=== PATIENT | female | born 1955 | race Caucasian/White ===

== ENCOUNTER 2016-07-12 07:21 | Day surgery (SDC) | payer MEDICARE, OTHER ==
--- NOTE | ~2016-07-12 | OP ---
Record Of Operation [facility] [address] [place]. [address] NAME: OLINDA MCCRACKEN : 57 STATUS : [facility]#: [id number] AGE: 60 ADM/REG DATE : 07/12/16 MR#: [id number] REPORT SERV DATE: 07/12/16 DICTATED BY: EDGAR CASTANON DATE: 07/12/16 REPORT STATUS : Draft TRANSCRIBED BY: NOY DATE: 07/12/16 DATE OF PROCEDURE: 07/12/2016 PREOPERATIVE DIAGNOSES: 1. Right breast HER2 positive breast cancer. 2. Left breast invasive ductal cancer, HER2 negative. 3. History of gastric lymphoma. POSTOPERATIVE DIAGNOSES: 1. Right breast HER2 positive breast cancer. 2. Left breast invasive ductal cancer, HER2 negative. 3. History of gastric lymphoma. PROCEDURE: 1. Insertion of left chest wall venous port internal jugular access. 2. Intraoperative fluoroscopy with interpretation. 3. Intraoperative ultrasound for vein access. 4. Placement of a right percutaneous HydroMARK clip for tumor bed evaluation post chemotherapy, this is under ultrasound guidance. INDICATION FOR THE PROCEDURE: Ms Mccracken is a 60-year-old patient with unfortunately a bilateral breast cancer diagnosis. The right breast cancer is HER2 positive and does warrant neoadjuvant chemotherapy. A HydroMARK clip will be placed in the right breast tumor today under ultrasound guidance. Additionally, she has been diagnosed with a left breast, grade 1, ER/[place] positive invasive ductal cancer as well. The clip was placed in that lesion at biopsy in my office. The plan today is for port placement on the left side internal jugular access and additionally the placement of the clip. OPERATIVE FINDINGS: After appropriate consent was on the chart, the patient was taken to the operating room in supine position. She was placed under monitored anesthesia without complication. The ultrasound was utilized to visualize the tumor in the right breast marked on the skin. The ultrasound was placed in the left neck showing the internal jugular vein in its normal anatomic position and patent. The patient's bilateral chest wall were prepped and draped in sterile fashion. The draped ultrasound probe was utilized to visualize the left internal jugular vein. Again, the local anesthetic was infiltrated in the skin and soft tissue overlying the vein. The vein was then accessed with a single pass of the Seldinger needle under direct ultrasound guidance. Nonpulsatile venous-appearing blood was noted in the syringe. The syringe was removed and the wire passed with ease. Fluoroscopy noted the wire to be in good position in the vena cava. The needle was removed and the wire secured for later use. The local anesthetic was infiltrated in the skin and soft tissue for the port site as well as the tunnel site. An incision was made with a #15 blade, and the port pocket created with Bovie cauterization. Stay sutures were placed at the 3 o'clock and 9 o'clock position with 3-0 Prolene. An 11 blade was utilized to lengthen the access site in the neck and the tunneling device utilized to create the new subcutaneous tunnel from the port to the access site as well as pull the catheter through. At this point, the dilator with tear-away sheath was placed over the wire. With constant movement of the wire, the Record Of Operation [facility] [address] [place]. [address] NAME: OLINDA MCCRACKEN : 57 STATUS : [facility]#: [id number] AGE: 60 ADM/REG DATE : 07/12/16 MR#: [id number] REPORT SERV DATE: 07/12/16 DICTATED BY: EDGAR CASTANON DATE: 07/12/16 REPORT STATUS : Draft TRANSCRIBED BY: MODL DATE: 07/12/16 vein was dilated. The dilator and wire were removed from the sheath leaving the sheath in the vein. The catheter was placed into the sheath and sheath torn away, and the catheter was noted to be in good position at atriocaval junction with fluoroscopy. The catheter was cut for length at the port site and connects to the port with the connection device. Grady needle with heparinized saline was utilized to note that the port aspirated and flushed with ease. It was packed with heparinized saline. The wound was copiously irrigated with warm saline. Hemostasis achieved. The incision closed in two layers of Monocryl. A small suture of Monocryl was utilized to reapproximate the bekah in the neck. Both incisions were cleansed and dried and Dermabond overlaid. The ultrasound was utilized to visualize the tumor in the right breast. Local anesthetic was infiltrated into the skin and soft tissue and the percutaneous placement of the clip was performed under ultrasound guidance. The skin was cleansed and a Band-Aid applied. The patient tolerated the procedure well. She was awoken from anesthesia without complication and taken to the PACU in stable condition for recovery. All counts were correct at the end of the case. ESTIMATED BLOOD LOSS: 10 mL. COMPLICATIONS: None. SPECIMENS: None. CHIN/NOY Edgar Castanon MD / [id number] CC: MD Jose L Smith M.D. [facility] Rodger Latham IV, M.D.
[~2016-07-12 07:21] MED LIST: ACIPHEX PO; ADVIL PO; ALEVE220 MG PO; ALLEGRA180 PO; CALTRAT600 PO; CLARIT10 PO; FLEX PO; PLAQ200B PO; POTASSIUM PO; PROBIOTIC PO; SINGULAIR1 PO; STERAP512 PO; SUPER B COMPLEX PO; T PO; TUMERIC; ULTRAM50 PO; VENTOLIN HFA INH; VITAMIN D31000 UNIT PO; VOLT75 PO; [UNRECOGNIZED DRUG - REMARK]
[2016-07-12 08:00] LABS: BASOPHILS 0.5 %; BASOPHILS ABSOLUTE 0.04 10/3/uL (0.0-0.16); EOSINOPHILS ABSOLUTE 0.38 10/3/uL (0.0-0.53); HEMATOCRIT 44.5 % (36.0-48.0); HEMOGLOBIN 14.8 g/dL (12.0-16.0); IMMATURE GRANULOCYTES 0.3 %; IMMATURE GRANULOCYTES ABSOLUTE 0.02 10/3/uL (0.0-0.11); LYMPHOCYTES 22.6 %; LYMPHOCYTES ABSOLUTE 1.73 10/3/uL (0.67-4.30); MEAN CORPUS HGB CONC 33.3 g/dL (32.0-36.0); MEAN CORPUSCULAR HEMOGLOB 30.3 pg (26.0-34.0); MEAN CORPUSCULAR VOLUME 91.2 fL (80-100); MEAN PLATELET VOLUME 10.4 fL (9.2-13.0); MONOCYTES 13.4 %; MONOCYTES ABSOLUTE 1.03 10/3/uL (0.21-1.20); NEUTROPHILS 58.2 %; NEUTROPHILS ABSOLUTE 4.46 10/3/uL (2.02-8.40); PLATELET COUNT 354 10/3/uL (150-400); RBC DISTRIBUTION WIDTH 12.8 % (12.0-16.0); RED CELL COUNT 4.88 10/6/uL (4.0-5.6); WHITE BLOOD CELLS 7.7 10/3/uL (4.5-10.5)
[2016-07-12 08:01] LABS: MANUAL DIFF NO %
[2016-07-12 08:15] LABS: A/G RATIO 0.7 (0.7-1.9); ALBUMIN 3.1 G/DL (3.5-5.0); ALKALINE PHOSPHATASE 94 U/L (45-117); BUN (BLOOD UREA NITROGEN) 12 MG/DL (6-23); CALCIUM, SERUM 9.5 MG/DL (8.5-10.4); CHLORIDE, SERUM 106 MMOL/L (96-112); CO2 (CARBON DIOXIDE) 30 MMOL/L (24-34); CREATININE 0.74 MG/DL (0.55-1.02); GFR AFRICAN AMERICAN 103 ML/MIN (>=60); GFR NON AFRICAN AMERICAN 89 ML/MIN (>=60); GLUCOSE, SERUM 106 MG/DL (60-99); POTASSIUM, SERUM 4.3 MMOL/L (3.5-5.3); SGOT(AST) 22 U/L (5-40); SGPT(ALT) 30 U/L (5-65); SODIUM, SERUM 143 MMOL/L (135-148); TOTAL BILIRUBIN 0.3 MG/DL (0-1.2); TOTAL PROTEIN 7.7 G/DL (6.0-8.5)
[2016-07-12 08:16] LABS: GLOBULIN 4.6 G/DL (2.5-4.1)
[2016-11-29] MEDS ORDERED: MICRO-K10 MEQ PO (11:24)
== END 2016-07-12 11:38 | disposition home or self-care (01) ==
LOC: SDC 07:21
PROVIDERS: Surgery Surgical Oncology
PROC: 05HN33Z Insertion of Infusion Device into Left Internal Jugular Vein, Percutaneous Approach (ICD-10-PCS; 2016-07-12)
PROC: B514ZZA Fluoroscopy of Left Jugular Veins, Guidance (ICD-10-PCS; 2016-07-12)
PROC: B544ZZA Ultrasonography of Left Jugular Veins, Guidance (ICD-10-PCS; 2016-07-12)
PROC: BH40ZZZ Ultrasonography of Right Breast (ICD-10-PCS; 2016-07-12)
PROC: 0JH60XZ Insertion of Tunneled Vascular Access Device into Chest Subcutaneous Tissue and Fascia, Open Approach (ICD-10-PCS; principal; 2016-07-12 08:45)
DX: C50.912 Malignant neoplasm of unspecified site of left female breast (principal); C50.911 Malignant neoplasm of unspecified site of right female breast; Z17.0 Estrogen receptor positive status [ER+]; Z85.72 Personal history of non-Hodgkin lymphomas; J45.909 Unspecified asthma, uncomplicated; M06.9 Rheumatoid arthritis, unspecified; K21.9 Gastro-esophageal reflux disease without esophagitis; K59.00 Constipation, unspecified; Z86.69 Personal history of other diseases of the nervous system and sense organs; Z79.1 Long term (current) use of non-steroidal anti-inflammatories (NSAID); Z79.899 Other long term (current) drug therapy; Z87.891 Personal history of nicotine dependence; Z90.49 Acquired absence of other specified parts of digestive tract; Z98.890 Other specified postprocedural states; Z87.442 Personal history of urinary calculi; Z98.1 Arthrodesis status; Z92.3 Personal history of irradiation
CPT/HCPCS: 71010; 77001; 80053; 85025; 93005; A9270-GY; C1751; J0690; J2250; J3010